=== PATIENT | male | born 1995 | race Caucasian/White ===

== ENCOUNTER 2021-01-30 03:08 | Emergency (ER) | payer SELFPAY ==
[~2021-01-30] VITALS: Ht 175.3 cm; Wt 108.9 kg
[2021-01-30] MEDS ORDERED: AMOCLA875 PO (03:42)
== END 2021-01-30 04:14 | disposition home or self-care (01) ==
LOC: ER 03:08
DX: L02.414 Cutaneous abscess of left upper limb (principal); F17.290 Nicotine dependence, other tobacco product, uncomplicated; F17.220 Nicotine dependence, chewing tobacco, uncomplicated
CPT/HCPCS: 10060; 99283-25; A9270